=== PATIENT | female | born 1985 | race Caucasian/White ===

== ENCOUNTER 2017-08-09 11:24 | Emergency (ER) | END 2017-08-09 13:55 | disposition home or self-care (01) ==

== ENCOUNTER 2017-11-11 18:34 | Outpatient (CLI) | END 2017-11-11 20:49 | disposition home or self-care (01) ==

== ENCOUNTER 2017-12-28 02:55 | Inpatient (IN) | END 2017-12-31 12:05 | disposition home or self-care (01) | DRG 775 ==

== ENCOUNTER 2018-08-15 18:38 | Emergency (ER) | payer OTHER ==
[~2018-08-15] VITALS: Ht 162.6 cm; Wt 63.3 kg
[~2018-08-15 18:38] MED LIST: PREN1TAB79 PO
[2018-08-15 19:31] VITALS: Ht 162.6 cm; Wt 63.3 kg
[2018-08-15] MEDS ORDERED: SOD CHLORIDE 0.9% 1,000 ML IV STA (22:21)
[2018-08-15] MEDS ORDERED: KETOROLAC 30 MG INJ IV STA (22:21)
--- NOTE | 2018-08-15 22:54 | ERD ---
ER Documentation Chief Complaint Chief Complaint hematuria x3 days w/ bilateral flank pain. no n/v/d HPI This is a 32-year-old female with a nonsignificant past medical history presents ED with complaints of hematuria times 3 days. Patient also admits to bilateral low back pain. Admits to history of kidney stones. Denies fever, chills, nausea, vomiting, diarrhea, constipation, hematemesis, melena, hematochezia, dysuria, vaginal pain, vaginal discharge, increased frequency of urination, muscle pain, weakness and all other symptoms. Denies chance of being . No known drug allergies ROS All systems reviewed and are negative except as per history of present illness. Medications Home Meds Reported Medications Vit W-Ca,Fe,FA(<1 mg) ( Vitamins) 1 Each Tablet, 1 EACH PO, TAB 12/30/17 Vit W-Ca,Fe,FA(<1 mg) ( Vitamins) 1 Each Tablet, 1 EACH PO 11/11/17 Allergies Allergies: Coded Allergies: No Known Allergy (Unverified , 12/28/17) PMhx/Soc Medical and Surgical Hx: pt denies Surgical Hx Hx Alcohol Use: No Hx Substance Use: No Hx Tobacco Use: No Smoking Status: Never smoker FmHx Family History: No diabetes Physical Exam Vitals Vital Signs Date Temp Pulse Resp B/P (MAP) Pulse Ox O2 O2 Flow FiO2 Time Delivery Rate 08/15/18 98.6 82 18 158/88 100 19:31 (111) Physical Exam Physical Exam Vitals signs: Reviewed by me. General: Well developed, well nourished, in no acute distress. Patient is awake and alert. Head: Normocephalic, atraumatic. Eyes: Normal conjunctiva, Pupils PERRLA, EOM intact grossly ENT: Pharynx is clear, Moist mucous membranes, external ears, nose and mouth normal Neck: Supple, no masses, lymphadenopathy or JVD Respiratory: Clear to auscultation bilaterally with no wheezing, rhonchi, rales, no distress Cardiovascular: RRR, no murmurs, rubs, or gallops Abdominal: Soft, nondistended, no peritoneal signs, no rigidity, no surgical abdomen, bowel sounds present all 4 quadrants, nontender light palpation all 4 quadrants : Deferred MSK: No edema, no unilateral swelling, 5/5 strength Back: No midline tenderness. No flank tenderness Neurologic: Alert and oriented, moving all extremities, normal speech, no focal weakness, no cerebellar signs. Normal mentation Skin: warm and dry, No rash Psych: Normal mood Result Diagram: 08/15/18222908/15/182229 Results 24 hrs Laboratory Tests Test 08/15/18 22:30 White Blood Count 6.3 10^3/ul Red Blood Count 4.65 10^6/ul Hemoglobin 13.7 g/dl Hematocrit 41.0 % Mean Corpuscular Volume 88.2 fl Mean Corpuscular Hemoglobin 29.5 pg Mean Corpuscular Hemoglobin Concent 33.4 g/dl Red Cell Distribution Width 12.5 % Platelet Count 154 10^3/UL Mean Platelet Volume 12.0 fl Immature Granulocytes % 0.200 % Neutrophils % 46.2 % Lymphocytes % 45.6 % Monocytes % 5.9 % Eosinophils % 1.6 % Basophils % 0.5 % Nucleated Red Blood Cells % 0.0 /100WBC Immature Granulocytes # 0.010 10^3/ul Neutrophils # 2.9 10^3/ul Lymphocytes # 2.9 10^3/ul Monocytes # 0.4 10^3/ul Eosinophils # 0.1 10^3/ul Basophils # 0.0 10^3/ul Nucleated Red Blood Cells # 0.0 10^3/ul Urine Color YELLOW Urine Clarity CLOUDY Urine pH 7.0 Urine Specific [place] 1.008 Urine Ketones NEGATIVE mg/dL Urine Nitrite NEGATIVE mg/dL Urine Bilirubin NEGATIVE mg/dL Urine Urobilinogen NEGATIVE mg/dL Urine Leukocyte Esterase NEGATIVE Julieth/ul Urine Microscopic RBC > 182 /HPF Urine Microscopic WBC 5 /HPF Urine Bacteria FEW /HPF Urine Mucus FEW /HPF Urine Hemoglobin 3+ mg/dL Urine Glucose NEGATIVE mg/dL Urine Total Protein 1+ mg/dl Urine Test NEGATIVE Sodium Level 140 mmol/L Potassium Level 3.9 mmol/L Chloride Level 103 mmol/L Carbon Dioxide Level 27 mmol/L Anion Gap 10 Blood Urea Nitrogen 11 mg/dl Creatinine 0.65 mg/dl Est Glomerular Filtrat Rate mL/min > 60 mL/min Glucose Level 85 mg/dl Calcium Level 9.4 mg/dl Total Bilirubin 0.4 mg/dl Direct Bilirubin 0.00 mg/dl Indirect Bilirubin 0.4 mg/dl Aspartate Amino Transf (AST/SGOT) 22 IU/L Alanine Aminotransferase (ALT/SGPT) 15 IU/L Alkaline Phosphatase 55 IU/L Total Protein 7.4 g/dl Albumin 4.5 g/dl Globulin 2.90 g/dl Albumin/Globulin Ratio 1.55 Current Medications Medications Dose Sig/Ricardo Start Time Status Last (Trade) Ordered Route PRN Stop Time Admin Dose Reason Admin Sodium 1,000 ml @ Q1H STAT 08/15/18 DC 08/15/18 Chloride 1,000 mls/hr IV 22:21 08/15/18 22:50 23:20 Ketorolac 30 mg ONCE STAT 08/15/18 DC 08/15/18 Tromethamine IV 22:21 08/15/18 23:11 (Toradol) 22:23 Procedures/MDM EKG, MONITORS, & DIAGNOSTIC IMAGING: [place] [address] Radiology Main Line: [phone] DIAGNOSTIC IMAGING REPORT Patient: REUBEN FERNANDEZ : 1985 Age: 32 Sex: F MR #: [id number] DOS: 08/15/181 Ordering MD: KACI DENNY PA-C Location: [facility] Room/Bed: PROCEDURE: CT Abdomen and Pelvis without contrast. CLINICAL INDICATION: Hematuria and back pain TECHNIQUE: CT scan of the abdomen and pelvis was performed on a multi-detector high-resolution CT scanner. The patient was scanned without contrast administration. Coronal and sagittal reformatted images were obtained from the axial source images. Images were reviewed on a high-resolution PACS workstation. The total exam CTDI equals number mGy and the total exam DLP equals number mGy- cm. DICOM images are available. 3-D reconstructions were not performed. One or more of the following dose reduction techniques were utilized: 1.) Automated exposure control 2.) Adjustment of the mA +/- kV according to patient's size 3.) Use of iterative reconstruction technique. COMPARISON: None. FINDINGS: CT abdomen: Chest wall: Bilateral breast implants. Heart (where visible): Unremarkable. Lung bases: No evidence of pneumonia, mass, pleural effusion. Liver: Normal attenuation. No visible focal mass. Biliary ductal system: No evidence of significant dilatation. Gallbladder: No wall thickening, visible intraluminal stone, or pericholecystic inflammatory change. Pancreas: Unremarkable. Stomach: No identifiable focal mass or gross wall thickening. Spleen: No gross splenomegaly. Abdominal colon: Normal in caliber and course. Abdominal small bowel: Normal in caliber, course, and mucosal pattern. Adrenal glands: No visible masses. Right Kidney: Normal in size and contour without focal mass or collecting system dilatation. No visible calcifications. Left kidney: Normal in size and contour without focal mass or collecting system dilatation. Punctate nonobstructive papillary calculi. Abdominal aorta: Normal caliber. Lymph nodes: No significantly enlarged nodes. CT pelvis: Pelvic colon: Normal in caliber and course. No evidence of inflammatory change. Pelvic small bowel: Normal in caliber and course. Appendix: Identified. No evidence of inflammation. Urinary bladder: Normal in size and contour without visible wall thickening. Reproductive structures: The uterus is normal in size, mildly deviated towards the left developmentally. The right ovary somewhat more prominent than the left . The ovary probably contains a dominant follicle or corpus luteum. There is no free fluid in the pelvis Bony structures included in the scan: No clinically significant abnormalities. IMPRESSION: 1. Multiple nonobstructive left renal papillary calculi without current evidence of left hydronephrosis or ureteral calculus. 2. No current CT evidence of right renal calculi or obstruction. 3. Dominant follicle or corpus luteum in the right ovary without evidence of pelvic hemorrhage. 4. No evidence of bowel obstruction or perforation. RPTAT:AAJJ Physician Nora Date Time Electronically viewed and signed by Physician Nora on 08/16/2018 00:54 GW/ CC: KACI DENNY PA-C [id number] LAB INTERPRETATION: CBC shows no evidence of hemorrhage or infection Chemistry shows no evidence of significant electrolyte abnormalities or renal insufficiency Liver function test shows no evidence of acute biliary or hepatic dysfunction Lipase shows no evidence of acute pancreatitis Urinalysis is remarkable for over 182 microscopic RBCs, 5 WBCs, no nitrite and no leukocyte esterase Urine negative ER COURSE: The patient was given IV normal saline and Toradol The medication was well tolerated and the patient reports improvement in symptoms. The patient was stable throughout ED course. I kept the patient and/or family informed of laboratory and diagnostic imaging results throughout the emergency room course. The patient was promptly evaluated and a treatment plan was devised based on H&P and other data. This plan was discussed with the patient who agreed and had no further questions or concerns prior to discharge. MEDICAL DECISION MAKING: This is a 32-year-old female presents ED with hematuria times 3 days with assoc iated low back pain. Differential diagnosis includes but is not limited to UTI, pyelonephritis, kidney stone, rhabdomyolysis, bladder cancer, among other diagnoses. Patient has no fevers and does not have any muscle pain or weakness so doubt rhabdomyolysis. Given patient's age I doubt bladder cancer. Urinalysis does show RBCs as well as for WBCs. Urine culture is pending at this time. CT of the abdomen and pelvis does not show any obstructing kidney stones. Given patient's symptoms I will treat her for pyelonephritis and also send her home with Flomax. It is possible that patient did pass a kidney stone and that is the source of the bleeding and the low back pain. At this time there is no genitourinary emergency. She was advised to follow-up with urology in the next 48 hours. Patient can be managed close outpatient follow-up. Advised patient follow-up with her primary care in the next 48 hours as well. No evidence of sepsis, meningitis, obstructive pyonephritis, septic stone, ovarian torsion, tubo-ovarian abscess, ectopic , among others. Return to ED with any w orsening symptoms DISPOSITION PLAN: We discussed follow up with the patient's primary care doctor within 24 to 48 hours. Patient counseled regarding my diagnostic impression and care plan. Prior to discharge all questions answered. Pt agrees with treatment plan and understands strict return precautions. Precautionary instructions provided including instructions to return to the ER if not improving or for any worsening or changing symptoms or concerns. SPECIALIST FOLLOW UP RECOMMENDED: Neurology Patient has been advised to follow up with primary care in 1-2 days. Disclaimer: Inadvertent spelling and grammatical errors are likely due to EHR/dictation software use and do not reflect on the overall quality of patient care. Also, please note that the electronic time recorded on this note does not necessarily reflect the actual time of the patient encounter. Departure Diagnosis: Primary Impression: Hematuria Hematuria type: unspecified type Qualified Codes: R31.9 - Hematuria, uns pecified Condition: Stable Patient Instructions: Hematuria, Kidney Stone, Passed, Pyelonephritis, Female (Adult), Understanding Urinary Tract Infections (UTIs) Referrals: SLIM VIZCARRA MD, MEHRAN RAMIN, [facility] Additional Instructions: Patient advised to return to the ED immediately for new or worsening symptoms. Patient advised to follow up with primary care provider in the next 24-48 hours. Patient verbalized understanding and agrees with treatment plan and course of action. If patient has no primary care they may follow up with one of the [facility] clinics listed on the following page or one of the options listed below [facility] [address] [place] [id number] or [facility] [address] [place] [address] or [facility] [address] [place] [address] KACI DENNY PA-C Aug 15, 2018 22:54
[2018-08-16 01:07] VITALS: BP 127/83; PULSE 80; RESP 17
[2018-08-16] MEDS ORDERED: CIPR500T4 PO (01:09)
[2018-08-16] MEDS ORDERED: TAMS-14 PO (01:09)
[2018-08-16] MEDS ORDERED: IBUP-1542 PO (01:09)
== END 2018-08-16 01:16 | disposition home or self-care (01) ==
LOC: FTE 18:38
DX: R31.9 Hematuria, unspecified (principal)
CPT/HCPCS: 36415; 74176; 80053; 81001; 84703; 85025; 87086; 96374; J1885; J7030; Z7502